=== PATIENT | female | born 1960 | race Caucasian/White ===

== ENCOUNTER → 2017-01-26 | Outpatient (CLI) | payer OTHER ==
[~2017-01-26] MED LIST: ASPI-515 PO; BLAC160C PO; CHOL100015 PO; CLON0.25 PO; ESOM40SU PO; LIDOCAINE 1%, 20ML ONE; OMEP-110 PO; SODIUM BICARBONATE 4.2%, 5ML ONE
== END | disposition home or self-care (01) ==
LOC: RAD 09:05
PROVIDERS: ATTEND Otolaryngology
DX: R22.1 Localized swelling, mass and lump, neck (principal)
CPT/HCPCS: 76536; J3490

== ENCOUNTER → 2017-03-03 | Outpatient (CLI) | payer OTHER ==
[~2017-03-03] MED LIST changes: -LIDOCAINE 1%, 20ML ONE; +OMNIPAQUE 350 MG/ML, 100ML BOTTLE ONE; -SODIUM BICARBONATE 4.2%, 5ML ONE
== END | disposition home or self-care (01) ==
LOC: RAD 09:52
PROVIDERS: ATTEND Otolaryngology
DX: R22.1 Localized swelling, mass and lump, neck (principal); J06.9 Acute upper respiratory infection, unspecified
CPT/HCPCS: 70491; Q9967

== ENCOUNTER 2017-12-05 14:12 | Emergency (ER) | payer BC, OTHER ==
[~2017-12-05] VITALS: Ht 162.6 cm; Wt 68.9 kg
[~2017-12-05 14:12] MED LIST changes: -OMNIPAQUE 350 MG/ML, 100ML BOTTLE ONE
[2017-12-05 14:14] VITALS: BP 130/80
[2017-12-05] MEDS ORDERED: MULT-115 PO (14:54)
[2017-12-05] MEDS ORDERED: ESOM20CA PO (14:54)
[2017-12-05] MEDS ORDERED: VITA1CAP PO (14:55)
== END 2017-12-05 15:18 | disposition home or self-care (01) ==
LOC: ED 14:51
DX: J00 Acute nasopharyngitis [common cold] (principal); K21.9 Gastro-esophageal reflux disease without esophagitis; K22.2 Esophageal obstruction; Z88.0 Allergy status to penicillin; Z90.49 Acquired absence of other specified parts of digestive tract; Z30.2 Encounter for sterilization
CPT/HCPCS: 71046; 99284

== ENCOUNTER 2019-02-16 03:32 | Emergency (ER) | payer BC ==
[~2019-02-16] VITALS: Ht 162.6 cm; Wt 71.1 kg
[~2019-02-16 03:32] MED LIST changes: +ESOM20CA PO; +MULT-115 PO; +VITA1CAP PO
[2019-02-16 03:34] VITALS: BP 125/85
== END 2019-02-16 05:02 | disposition home or self-care (01) ==
LOC: ED 04:51
DX: J20.9 Acute bronchitis, unspecified (principal); Z90.89 Acquired absence of other organs
CPT/HCPCS: 71046; 99283; J7512

== ENCOUNTER 2019-10-16 18:58 | Emergency (ER) | payer BC ==
[~2019-10-16] VITALS: Ht 162.6 cm; Wt 69.8 kg
[2019-10-16 19:27] VITALS: BP 145/69
--- NOTE | 2019-10-16 19:31 | NUR ---
PT TO LOBBY, WAIT TIME EXPLAINED.
--- NOTE | 2019-10-16 20:20 | NUR ---
PT HERE WITH C/O "HEAD PAIN" AFTER STRIKING HEAD ON A CABINENT DOOR AT APPROX. 1800. PT DENIES LOC OR DIZZINESS, DENIES BLOOD THINNERS. PT DENIES ANY LACERATION FROM INJURY.
--- NOTE | 2019-10-16 20:47 | NUR ---
PA AT BEDSIDE FOR EXAM.
--- NOTE | 2019-10-16 21:02 | NUR ---
REPORT GIVEN TO MAREK SOTO. CARE TRANSFERRED.
== END 2019-10-16 21:58 | disposition home or self-care (01) ==
LOC: ED 21:40
DX: S06.320A Contusion and laceration of left cerebrum without loss of consciousness, initial encounter (principal); M54.2 Cervicalgia; K21.9 Gastro-esophageal reflux disease without esophagitis; X58.XXXA Exposure to other specified factors, initial encounter; Y93.89 Activity, other specified; Y92.89 Other specified places as the place of occurrence of the external cause; Y99.8 Other external cause status
CPT/HCPCS: 70450; 72125; 99284

== ENCOUNTER 2021-04-01 06:10 | Emergency (ER) | payer BC ==
[~2021-04-01] VITALS: Ht 162.6 cm; Wt 69.4 kg
[~2021-04-01 06:10] MED LIST changes: -ASPI-515 PO; +ASPI-963 PO
--- NOTE | 2021-04-01 06:59 | NUR ---
RIGHT FLANK PAIN X 4 DAYS. BEDSIDE REPORT FROM LINNEA JARA. DR. HUTTON EVALUATED. PT WITH STEADY GAIT TO BATHROOM FOR UA. VSS. NADN.
[2021-04-01] MEDS ORDERED: SODIUM CHLORIDE FLUSH 10ML SYR IVF ONE (07:00)
[2021-04-01] MEDS ORDERED: ONDANSETRON 2MG/ML, 2ML IVPush ONE (07:00)
[2021-04-01] MEDS ORDERED: KETOROLAC 30 MG/1 ML IVPush ONE (07:00)
[2021-04-01] MEDS ORDERED: SODIUM CHLORIDE 0.9% 1,000ML IVBOLUS ONE (07:00)
[2021-04-01 07:31] LABS: BASOPHILS % (AUTO) 1 % (0-1); EOSINOPHILS % (AUTO) 3 % (1-7); LYMPHOCYTES % (AUTO) 30 % (22-44); MEAN CORPUSCULAR HEMOGLOBIN 30.9 pg (27.0-34.8); MEAN CORPUSCULAR HGB CONC 34.5 g/dL (32.4-35.8); MEAN PLATELET VOLUME 7.6 fL (7.4-10.4); MONOCYTES % (AUTO) 6 % (2-9); NEUTROPHILS % (AUTO) 60 % (42-75); PLATELET COUNT 285 x10^3/uL (130-400); RED BLOOD COUNT 4.41 x10^6/uL (3.82-5.3)
[2021-04-01 07:33] LABS: MD NO
[2021-04-01] MEDS ORDERED: KETOROLAC 30 MG/1 ML ONE (07:40)
[2021-04-01 07:41] LABS: MICROSCOPIC AUTO
[2021-04-01] MEDS ORDERED: ONDANSETRON 2MG/ML, 2ML ONE (07:41)
[2021-04-01 07:42] LABS: ALANINE AMINOTRANSFERASE 22 U/L (12-78); ALBUMIN 3.7 g/dL (3.4-5.0); ANION GAP 3 mmol/L (5-15); CALCIUM 8.8 mg/dL (8.5-10.1); CHLORIDE 113 mmol/L (98-107); CREATININE 1.07 mg/dL (0.55-1.02)
[2021-04-01 07:44] LABS: ALKALINE PHOSPHATASE 51 U/L (45-117); BILIRUBIN,TOTAL 0.4 mg/dL (0.2-1.0)
[2021-04-01 08:48] VITALS: BP 154/77
--- NOTE | 2021-04-01 08:49 | NUR ---
Patient given discharge instructions and they have confirmed that they understand the instructions. Patient ambulatory with steady gait.
== END 2021-04-01 08:50 | disposition home or self-care (01) ==
LOC: ED 08:14
DX: S29.012A Strain of muscle and tendon of back wall of thorax, initial encounter (principal); R10.9 Unspecified abdominal pain; K21.9 Gastro-esophageal reflux disease without esophagitis; X58.XXXA Exposure to other specified factors, initial encounter; Y93.89 Activity, other specified; Y92.89 Other specified places as the place of occurrence of the external cause; Y99.8 Other external cause status
CPT/HCPCS: 36415; 74176; 80053; 81001; 85025; 96361; 96374; 96375; 99284; J1885; J2405; J7030